=== PATIENT | female | born 1965 | race Caucasian/White ===

== ENCOUNTER 2022-04-15 03:10 | Outpatient (CLI) | payer BC, SELFPAY | END 2022-04-15 03:11 | disposition home or self-care (01) | PROVIDERS: Visit Provider Family Medicine | DX: F30.9 Manic episode, unspecified (principal) | CPT/HCPCS: A0425; A0427 ==

== ENCOUNTER 2022-04-15 03:40 | Emergency (ER) | payer BC, SELFPAY ==
[2022-04-15 04:06] VITALS: BP 132/68; PULSE 95; RESP 18; TEMP 36.9; O2SAT 94; BMI 25.8
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
[2022-04-15 04:25] LABS: Basophils Absolute Auto 0.06 K/uL (0.00-0.30); Basophils Percent Auto 0.7 % (0.0-3.0); Eosinophils Percent Auto 1.1 % (0.0-7.0); Hematocrit 39.1 % (33.0-51.0); Hemoglobin* 13.2 gm/dL (12.0-16.0); Immature Granulocytes Abs Auto 0.01 K/uL (0.00-0.30); Lymphocytes Percent Auto 34.2 % (20-44); Mean Corpuscular HGB Conc 34 gm/dL (32-36); Mean Corpuscular Hemoglobin 30 pg (26-34); Mean Corpuscular Volume 88 fL (80-100); Monocytes Percent Auto 5.5 % (0.0-11.0); Neutrophils Percent Auto 58.4 % (42.0-72.0); Platelet Count* 200 K/uL (140-440); RDW Coefficient of Variation % 13.2 % (11.5-15.5); Red Blood Count 4.43 m/uL (4.00-5.20); White Blood Count* 9.07 K/uL (4.50-11.00)
[2022-04-15 04:31] LABS: Slide Review Reflex No
[2022-04-15 04:38] LABS: Albumin* 4.1 g/dL (3.3-5.0); Chloride* 110 mmol/L (96-114); Potassium* 3.5 mmol/L (3.6-5.1); Sodium* 140 mmol/L (135-149)
[2022-04-15 04:40] LABS: Creatinine* 0.8 mg/dL (0.5-1.5); Est. Creatinine Clearance* 70.66; Estimated Glomerular Filt Rate 86 ml/min
[2022-04-15 04:41] LABS: Alanine Aminotransferase* 136 U/L (4-35); Alkaline Phosphatase* 107 U/L (40-150); Aspartate Amino Transferase* 108 U/L (12-35); Bilirubin Total* 1.4 mg/dL (0.1-1.5); Blood Urea Nitrogen* 20 mg/dL (7-30); Carbon Dioxide* 23 mmol/L (20-32); Glucose* 155 mg/dL (60-115); Total Protein* 7.5 g/dL (6.0-8.3)
[2022-04-15 04:47] LABS: Ethanol* < 0.01 % (0.01-0.03)
[2022-04-15 05:04] LABS: PCR FLU A Negative PCR FLU A (Negative); PCR FLU B Negative PCR FLU B (Negative)
[2022-04-15 05:07] LABS: SARS PCR* Negative SARS-CoV-2 (Negative)
[2022-04-15] MEDS: 0.9 % SODIUM CHLORIDE 1000 ml 1,000 ML IV (05:24)
--- NOTE | 2022-04-15 05:48 | ED.NURSE ---
Pt here now, states Pt behavior is new, bizarre for last 3 days
--- NOTE | 2022-04-15 05:52 | ED.NURSE ---
DEC assessment started. Pt to lobby
[2022-04-15 06:44] LABS: Appearance Urine Clear (Clear); Bilirubin Urine 1+ (Negative); Blood Urine Negative (Negative); Color Urine Yellow (Yellow); Glucose Urine Negative (Negative); Ketones Urine 2+ (Negative); Leukocyte Esterase Urine Negative (Negative); Nitrite Urine Negative (Negative); Protein Urine Trace (Negative); Specific Gravity Urine >= 1.030 (1.000-1.030); Urobilinogen Urine 0.2 (0.2-1.0); pH Urine 5.5 (5.0-8.5)
[2022-04-15 06:54] LABS: RBC Urine 0-2 (0-2); WBC Urine 0-2 (0-5)
[2022-04-15 06:55] LABS: Amorphous Sediment Urine Moderate; Amphetamine Screen Urine Negative (Negative); Barbiturate Screen Urine Negative (Negative); Benzodiazepines Screen Urine Negative (Negative); Cannabinoid Screen Urine Negative (Negative); Coarse Granular Casts Urine Few; Cocaine Screen Urine Negative (Negative); Fine Granular Casts Urine Few; Methadone Screen Urine Negative (Negative); Methamphetamines Screen Urine Negative (Negative); Opiate Screen Urine Negative (Negative); Oxycodone Screen Urine Negative (Negative); Phencyclidine Screen Urine Negative (Negative); Squamous Epithelial Cell Urine Moderate (None-Few); Tricyclic Antidepressant Urine Negative (Negative)
[2022-04-15 06:56] LABS: Mucus Urine Moderate
[2022-04-15 08:02] VITALS: BP 143/84; PULSE 89; RESP 18; TEMP 36.3; O2SAT 98
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
--- NOTE | 2022-04-15 12:24 | PC.SOCIAL ---
Social work: Per MD order for in-pt mental health placement, the only facilities with beds available are [facility] and [facility]. Information has been faxed to both facilities and I am awaiting calls back with decision on admit. 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
--- NOTE | 2022-04-15 13:15 | PC.NURSE ---
pt sleeping at this time, repositions self independently
--- NOTE | 2022-04-15 15:22 | PC.SOCIAL ---
Social work: Received call from Adali at [facility] in-pt mental health assessment, stating they can accept pt today for admit. Nurse to nurse phone number os [phone]. Pt can be sent when transportation is arranged and nurse to nurse report is given. Provided this information to ED nurse for follow up. Called [facility] and let them know placement at their facility is no longer needed as pt has been accepted at [facility].
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
[2022-04-15] MEDS: OLANZapine 5 MG TAB.RAPDIS PO (16:53)
--- NOTE | 2022-04-15 17:03 | PC.NURSE ---
pt Alphonso is en route to ER, pt aware of this, meal tray ordered for pt and guest tray for her , pt concerned about how she and her will get there safely, told pt that it would just be her going and we will get her there in an ambulance, pt is agreeable to this
[2022-04-15 17:24] VITALS: BP 136/79; PULSE 89; RESP 18; TEMP 36.4; O2SAT 99
--- NOTE | 2022-04-15 21:03 | PC.NURSE ---
Report given to [facility]. Patient transporting to [facility].
--- NOTE | 2022-04-15 21:07 | PC.NURSE ---
Call to Kailey at [facility] to let her know patient is on her way.
== END 2022-04-15 21:10 | disposition home or self-care (01) ==
PROVIDERS: Family Medicine; Emergency Provider Family Medicine
DX: F22 Delusional disorders (principal); R94.5 Abnormal results of liver function studies
CPT/HCPCS: 36415; 80053; 80306; 81003; 81015; 82077; 84443; 85025; 87502; 87635; 99284; A9270; J7030